=== PATIENT | male | born 1990 | race Caucasian/White ===

== ENCOUNTER 2020-04-24 20:26 | Emergency (ER) | payer BC, OTHER ==
[~2020-04-24] VITALS: Ht 172.7 cm; Wt 68.0 kg
--- OUTSIDE RECORDS SUMMARY | ~2020-04-24 | XMS | Clinical Summary ---
Demographics + + + | Address | [address] | | | [place] [address] | + + + | Home Phone | | + + + | Preferred Language | Unknown | + + + | Marital Status | Single | + + + | Church Affiliation | Unknown | + + + | Race | White | + + + | Ethnic Group | Not or | + + + Author + + + | Author | [facility] | | | and [place] | + + + | Organization | [facility] | | | and [place] | + + + | Address | Unknown | + + + | Phone | Unavailable | + + + Support + + +---------+ + | Name | Relationship | Address | Phone | + + +---------+ + | Tarsha Arana | ECON | Unknown | | + + +---------+ + Care Team Providers + +------+ + | Care Vegetable Vendor Name | Role | Phone | + +------+ + | Malika Silva | PCP | | + +------+ + Allergies Not on File Medications Not on file Active Problems Not on file Immunizations + + + + | Name | Administration Dates | Next Due | + + + + | PNEUMOCOCCAL | 10/16/2014 | | | POLYSACCHARIDE | | | | 23-VALENT (PPSV23) | | | + + + + Family History + + +------+ + | Medical History | Relation | Name | Comments | + + +------+ + | Other (see comment) | Father | | Other (see comments) - unknown | + + +------+ + | COPD | Mother | | | + + +------+ + + +------+--------+ + | Relation | Name | Status | Comments | + +------+--------+ + | Father | | | | + +------+--------+ + | Mother | | | | + +------+--------+ + Social History + +-------+ +--------+------+ | Tobacco Use | Types | Packs/Day | Years | Date | | | | | Used | | + +-------+ +--------+------+ | Current Every Day | | 1 | | | | Smoker | | | | | + +-------+ +--------+------+ + + + | Sex Assigned at | Date Recorded | | | | + + + | Not on file | | + + + Last Filed Vital Signs Not on file Plan of Treatment + + + + + | Health Maintenance | Due Date | Last | Comments | | | | Done | | + + + + + | Vaccine: | 09/20/ | | | | Dtap/Tdap/Td (1 - | 8 | | | | Tdap) | | | | + + + + + | Vaccine: Influenza | | 10/16/19 | | | (#1) | 0 | 15 | | + + + + + Implants + +------+-------+ +--------+--------+--------+ | Implanted | Type | Area | Manufacture | Device | Shelf | Model | | | | | r | | Expira | / | | | | | | Identi | tion | Serial | | | | | | fier | Date | / Lot | + +------+-------+ +--------+--------+--------+ | Plate Kls Mini 2.0 Reg 4h - | | N/A: | TAYLER Fishman | | | 25-550 | | [id number]: Qty: 1 on | | Mouth | L.P. | | | -- | | 10/15/2014 by Lucio Corbett, | | | | | | / / | | DDS | | | | | | | + +------+-------+ +--------+--------+--------+ | Plate Kls 2.0 Rigid Str Reg | | N/A: | KLS Kye | | | 50-320 | | 8h - [id number]: Qty: | | Mouth | L.P. | | | -08-09 | | 1 on 10/15/2014 by Aric, | | | | | | / / | | Lucio Melendez DDS | | | | | | | + +------+-------+ +--------+--------+--------+ | Screw Arturs Emerg 2.3 5mm | | N/A: | TAYLER Fishman | | | 25-873 | | Single - [id number]: | | Mouth | L.P. | | | -45-91 | | Qty: 1 on 10/15/2014 by | | | | | | / / | | Lucio Corbett DDS | | | | | | | + +------+-------+ +--------+--------+--------+ | Screw Kls Maxdrive Drl Free | | N/A: | KLS Kye | | | 25-879 | | 2.0 5mm - [id number]: | | Mouth | L.P. | | | -05-09 | | Qty: 5 on 10/15/2014 by | | | | | | / / | | Lucio Corbett DDS | | | | | | | + +------+-------+ +--------+--------+--------+ | Screw Tayler Maxdrive Mini | | N/A: | TAYLER Fishman | | | 25-872 | | 2.0x7mm - [id number]: | | Mouth | L.P. | | | -- | | Qty: 4 on 10/15/2014 by | | | | | | / / | | Lucio Corbett DDS | | | | | | | + +------+-------+ +--------+--------+--------+ | Plate Tayler 2.[address] [facility] - | | N/A: | TAYLER Fishman | | | 50-321 | | [id number]: Qty: 1 on | | Mouth | L.P. | | | -12-01 | | 10/15/2014 by Lucio Corbett, | | | | | | / / | | MARINO | | | | | | | + +------+-------+ +--------+--------+--------+ | N/AImplanted: Qty: 1 on | | N/A: | TAYLER Fishman | | | 25-873 | | 10/15/2014 by Lucio Corbett, | | Mouth | L.P. | | | -47-09 | | DDS | | | | | | / / | + +------+-------+ +--------+--------+--------+ + +------+-------+ +--------+--------+--------+ | Explanted | Type | Area | Manufacture | Device | Shelf | Model | | | | | r | | Expira | / | | | | | | Identi | tion | Serial | | | | | | fier | Date | / Lot | + +------+-------+ +--------+--------+--------+ | Screw Tayler W[place]en Free | | N/A: | TAYLER Fishman | | | 25-879 | | 2.0 7mm - [id number] | | Mouth | L.P. | | | -07-09 | | | | | | | | / / | + +------+-------+ +--------+--------+--------+ Results Not on filefrom Last 3 Months Insurance + +--------+ +--------+ +---------+------+ | Payer | Benefi | Subscriber | Effect | Phone | Address | Type | | | t Plan | ID | gini | | | | | | / | | Dates | | | | | | Group | | | | | | + +--------+ +--------+ +---------+------+ | [facility] | [id number] | 11/24/19 | [phone] | | PPO | | PLAN | PERSON | | 19-Pre | 5 | | | | | AL | | sent | | | | | | OPEN | | | | | | | | OPTION | | | | | | + +--------+ +--------+ +---------+------+ + +--------+ +--------+ + + | Guarantor Name | Accoun | Relation to | Date | Phone | Billing Address | | | t Type | Patient | of | | | | | | | | | | + +--------+ +--------+ + + | Uvaldo Arana | Person | Self [birth year] | [address] | | | al/Fam | | 1990 | [phone] | [place] [address] | | | sal | | | 5 (Home) | | + +--------+ +--------+ + + | Uvaldo Arana | Person | Self [birth year] | | [address] | | | al/Fam | | 1990 | [address] | [place] [address] | | | sal | | | 5 (Home) | | + +--------+ +--------+ + +"
--- OUTSIDE RECORDS SUMMARY | ~2020-04-24 | XMS | Encounter Summary ---
Demographics + + + | Address | [address] | | | [place] [address] | + + + | Home Phone | [email or web address] | + + + | Preferred Language | Unknown | + + + | Marital Status | Unmarried Domestic Partner | + + + | Sabianism Affiliation | Unknown | + + + | Race | White | + + + | Ethnic Group | Not or | + + + Author + + + | Author | [facility] | + + + | Organization | [facility] | + + + | Address | Unknown | + + + | Phone | Unavailable | + + + Support + + +---------+ + | Name | Relationship | Address | Phone | + + +---------+ + | Kamau Sumit | ECON | Unknown | | + + +---------+ + Care Team Providers + +------+ + | Care Cleaner Name | Role | Phone | + +------+ + | Malika Silva PA-C | PCP | | + +------+ + Reason for Visit + + + | Reason | Comments | + + + | STD - Sexually | wants tamar, possible exposure | | transmitted disease | | + + + Encounter Details +--------+---------+ + + + | Date | Type | Department | Care Team | Description | +--------+---------+ + + + | 07/07/ | Office | [facility] | Cl Russ, | Screen for STD | | 2019 | Visit | [facility] [place] | SERVICES [facility] [address] | (sexually | | | | [address] | [facility] | transmitted disease) | | | | [place], [place] | [place] [address] | (Primary Dx); | | | | [address] | [phone] | Urethritis; Dysuria | | | | | | | +--------+---------+ + + + Social History + +-------+ +--------+------+ | Tobacco Use | Types | Packs/Day | Years | Date | | | | | Used | | + +-------+ +--------+------+ | Current Every Day | | | | | | Smoker | | | | | + +-------+ +--------+------+ + +---+---+---+ | Smokeless Tobacco: | | | | | Current User | | | | + +---+---+---+ + + +---------+ + | Alcohol Use | Drinks/Week | oz/Week | Comments | + + +---------+ + | Yes | | | | + + +---------+ + + + + + | Alcohol Habits | Answer | Date Recorded | + + + + | How often do you have a drink containing | Monthly or less | 07/07/2019 | | alcohol? | | | + + + + | How many drinks containing alcohol do you | Not asked | | | have on a typical day when you are | | | | drinking? | | | + + + + | How often do you have six or more drinks on | Not asked | | | one occasion? | | | + + + + + + + | Sex Assigned at | Date Recorded | | | | + + + | Male | 07/07/2019 2:30 PM PST | + + + documented as of this encounter Last Filed Vital Signs + + + + + | Vital Sign | Reading | Time Taken | Comments | + + + + + | Blood Pressure | 138/68 | 07/07/2019 2:42 PM | | | | | PST | | + + + + + | Pulse | 91 | 07/07/2019 2:42 PM | | | | | PST | | + + + + + | Temperature | 36.9 C (98.4 F) | 07/07/2019 2:42 PM | | | | | PST | | + + + + + | Respiratory Rate | 18 | 07/07/2019 2:42 PM | | | | | PST | | + + + + + | Oxygen Saturation | 97% | 07/07/2019 2:42 PM | | | | | PST | | + + + + + | Inhaled Oxygen | - | - | | | Concentration | | | | + + + + + | Weight | 82.1 kg (181 lb) | 07/07/2019 2:42 PM | | | | | PST | | + + + + + | Height | 171 cm (5' 7.32") | 07/07/2019 2:42 PM | | | | | PST | | + + + + + | Body Mass Index | 28.08 | 07/07/2019 2:42 PM | | | | | PST | | + + + + + documented in this encounter Patient Instructions Patient Instructions Cl Russ NP - 07/07/2019 2:35 PM PST Exposure to Sexually Transmitted Infections: Care Instructions Your Care Instructions Sexually transmitted infections (STIs) are those diseases spread by sexual contact. There a re at least 20 different STIs, including chlamydia, gonorrhea, syphilis, and human immunodef iciency virus (HIV), which causes AIDS. Bacteria-caused STIs can be treated and cured. STIs caused by viruses, such as HIV, can be treated but not cured. Some STIs can reduce a woman's chances of getting in the future. STIs are spread during sexual contact, such as vaginal intercourse and oral or anal sex. Follow-up care is a epperson part of your treatment and safety. Be sure to make and go to all ap pointments, and call your doctor if you are having problems. It's also a good idea to know y our test results and keep a list of the medicines you take. How can you care for yourself at home? Your doctor may have given you a shot of antibiotics. If your doctor prescribed antibiot ic pills, take them as directed. Do not stop taking them just because you feel better. You n eed to take the full course of antibiotics. Do not have sexual contact while you have symptoms of an STI or are being treated for an STI. Tell your sex partner (or partners) that he or she will need treatment. If you are a woman, do not douche. Douching changes the normal balance of bacteria in th e vagina and may spread an infection up into your reproductive organs. To prevent exposure to STIs in the future Use latex condoms every time you have sex. Use them from the beginning to the end of sex ual contact. Talk to your partner before you have sex. Find out if he or she has or is at risk for an y STI. Keep in mind that a person may be able to spread an STI even if he or she does not guzmán ve symptoms. Do not have sex if you are being treated for an STI. Do not have sex with anyone who has symptoms of an STI, such as sores on the genitals or mouth. Having one sex partner (who does not have STIs and does not have sex with anyone else) i s a good way to avoid STIs. When should you call for help? Call your doctor now or seek immediate medical care if: You have new pain in your belly or pelvis. You have symptoms of a urinary tract infection. These may include: ? Pain or burning when you urinate. ? A frequent need to urinate without being able to pass much urine. ? Pain in the flank, which is just below the rib cage and above the waist on either side of the back. ? Blood in your urine. ? A fever. You have new or worsening pain or swelling in the scrotum. Watch closely for changes in your health, and be sure to contact your doctor if: You have unusual vaginal bleeding. You have a discharge from the vagina or penis. You have any new symptoms, such as sores, bumps, rashes, blisters, or warts. You have itching, tingling, pain, or burning in the genital or anal area. You think you may have an STI. Where can you learn more? To learn more about "Exposure to Sexually Transmitted Infections: Care Instructions", log i nto your [email or web address] account at [email or web address]. You can enter [id number] in the "[facility]" search box. Not on [email or web address]? Review the HistoSonicshart section of your After Visit Summary for directions on w to sign up. Current as of: May 05, 2018 Content Version: [id number] [employer]. Care instructions adapted under license by [facility]. If you have questions about a medical condition or this instr uction, always ask your healthcare professional. [employer] disclaims any qian anty or liability for your use of this information. Urethritis: Care Instructions Your Care Instructions Urethritis is an infection of the tube that takes urine from the bladder to the outside of the body. This tube is called the urethra. The infection is often caused by bacteria. This can happen if you have a sexually transmitt ed infection (STI). But a virus may also be a cause. Urethritis is usually treated with antibiotics. Most cases clear up with treatment. Proper treatment is very important. If you don't treat it, the infection can lead to lasting damage of the urethra. Other parts of the urinary system can also be damaged. Follow-up care is a epperson part of your treatment and safety. Be sure to make and go to all ap pointments, and call your doctor if you are having problems. It's also a good idea to know y our test results and keep a list of the medicines you take. How can you care for yourself at home? If your doctor prescribed antibiotics, take them as directed. Do not stop taking them ju st because you feel better. You need to take the full course of antibiotics. Take an ruvv-kan-lvnaedn pain medicine, such as acetaminophen (Tylenol), ibuprofen (Advi l, Motrin), or naproxen (Aleve), if needed. Be safe with medicines. Read and follow all inst ructions on the label. Do not take two or more pain medicines at the same time unless the doctor told you to. M any pain medicines have acetaminophen, which is Tylenol. Too much acetaminophen (Tylenol) ca n be harmful. Your doctor may have you take phenazopyridine (Pyridium). This is a pain medicine for th e urinary tract. It can turn your urine a deep red-orange. This is normal. Call your doctor if you think you are having a problem with your medicine. Do not have sex until you are done with treatment. If you do have sex, be sure to use a condom. Your sex partner or partners should be tested too if your urethritis was caused by a n STI. If your infection was caused by an injury or chemicals, avoid those things if you can. When should you call for help? Call your doctor now or seek immediate medical care if: You can't urinate. You have symptoms of a urinary infection. For example: ? You have blood or pus in your urine. ? You have pain in your back just below your rib cage. This is called flank pain. ? You have a fever, chills, or body aches. ? It hurts to urinate. ? You have groin or belly pain. You have a hard time urinating when your bladder is full. You notice mental changes or feel confused. Watch closely for changes in your health, and be sure to contact your doctor if: You do not get better as expected. Where can you learn more? To learn more about "Urethritis: Care Instructions", log into your [email or web address] account at http: [email or web address]. You can enter [id number] in the "[employer]" search box. Not on [email or web address]? Review the NewCondosOnlinet section of your After Visit Summary for directions on sunil rodriguez to sign up. Current as of: August 12, 2018 Content Version: [id number] [employer]. Care instructions adapted under license by [facility]. If you have questions about a medical condition or this instr uction, always ask your healthcare professional. [employer] disclaims any qian anty or liability for your use of this information. Painful Urination (Dysuria): Care Instructions Your Care Instructions Burning pain with urination (dysuria) is a common symptom of a urinary tract infection or o ther urinary problems. The bladder may become inflamed. This can cause pain when the bladder fills and empties. You may also feel pain if the tube that carries urine from the bladder t o the outside of the body (urethra) gets irritated or infected. Sexually transmitted infections (STIs) also may cause pain when you urinate. Sometimes the pain can be caused by things other than an infection. The urethra can be irri tated by soaps, perfumes, or foreign objects in the urethra. Kidney stones can cause pain wh en they pass through the urethra. The cause may be hard to find. You may need tests. Treatment for painful urination depends on the cause. Follow-up care is a epperson part of your treatment and safety. Be sure to make and go to all ap pointments, and call your doctor if you are having problems. It's also a good idea to know y our test results and keep a list of the medicines you take. How can you care for yourself at home? Drink extra water for the next day or two. This will help make the urine less concentrat ed. (If you have kidney, heart, or liver disease and have to limit fluids, talk with your do ctor before you increase the amount of fluids you drink.) Avoid drinks that are carbonated or have caffeine. They can irritate the bladder. Urinate often. Try to empty your bladder each time. For women: Urinate right after you have sex. After going to the bathroom, wipe from front to back. Avoid douches, bubble baths, and feminine hygiene sprays. And avoid other feminine hygie ne products that have deodorants. When should you call for help? Call your doctor now or seek immediate medical care if: You have new symptoms, such as fever, nausea, or vomiting. You have new or worse symptoms of a urinary problem. For example: ? You have blood or pus in your urine. ? You have chills or body aches. ? It hurts worse to urinate. ? You have groin or belly pain. ? You have pain in your back just below your rib cage (the flank area). Watch closely for changes in your health, and be sure to contact your doctor if you have any problems. Where can you learn more? To learn more about "Painful Urination (Dysuria): Care Instructions", log into your [email or web address] account at [email or web address]. You can enter [id number] in the "[employer]" search b ox. Not on [email or web address]? Review the [email or web address] section of your After Visit Summary for directions on ho w to sign up. Current as of: August 12, 2018 Content Version: [id number] [employer]. Care instructions adapted under license by [facility]. If you have questions about a medical condition or this instr uction, always ask your healthcare professional. [employer] disclaims any qian anty or liability for your use of this information. documented in this encounter Progress Notes Cl Russ NP - 07/07/2019 2:35 PM PSTFormatting of this note might be different f rom the original. CHIEF COMPLAINT: STD - Sexually transmitted disease (wants ck, possible exposure) The history is provided by the pt Patient here for STD check for gonorrhea chlamydia he has slight urethral pain dysuria last week or so. Patient has been monogamous for the last year and a half but 1/2 months ago th ey decided to have another female as another sexual partner which only occurred once and he used a condom but he is concerned he may have an STD from this. Patient's significant other she does not have any symptoms at this time. They are trying to get and he has guzmán d sperm analysis testing all of his counts are slightly low but not too bad and she has had minimal testing they are considering seeing a fertility specialist. Both him and his signif icant other have had drug use in the past and he has had chlamydia like 10 years ago but no other STDs. Patient has no abdominal pain no hematuria no urethral discharge no back pain o r abdominal pain no testicular pain or swelling no other symptoms no rashes. MEDICATIONS: Current outpatient prescriptions Medication Sig OrderDate EndDate ibuprofen 200 mg oral tablet Take 200 mg by mouth every six hours as needed. Allergies: Patient has no known allergies. History reviewed. No pertinent past medical history. Past Surgical History Procedure Laterality Date Jaw surgery Social History Socioeconomic History Marital status: Unmarried Domestic Partner Spouse name: Not on file Number of children: Not on file Years of education: Not on file Highest education level: Not on file Occupational History Not on file Social Needs Financial resource strain: Not on file Food insecurity: Worry: Not on file Inability: Not on file Transportation needs: Medical: Not on file Non-medical: Not on file Tobacco Use Smoking status: Current Every Day Smoker Smokeless tobacco: Current User Substance and Sexual Activity Alcohol use: Yes Frequency: Monthly or less Drug use: Not Currently Sexual activity: Yes Lifestyle Physical activity: Days per week: Not on file Minutes per session: Not on file Stress: Not on file Relationships Social connections: Talks on phone: Not on file Gets together: Not on file Attends taoist service: Not on file Active member of club or organization: Not on file Attends meetings of clubs or organizations: Not on file Relationship status: Not on file Other Topics Concern Not on file Social History Narrative Not on file Family History none Review of Systems Constitutional: Negative. Gastrointestinal: Negative. Genitourinary: Positive for dysuria. Negative for flank pain, frequency and urgency. Musculoskeletal: Negative. Skin: Negative. Neurological: Negative. Endo/Heme/Allergies: Negative. Physical Exam Vitals signs and nursing note reviewed. Constitutional: General: He is not in acute distress. Appearance: Normal appearance. He is not ill-appearing, toxic-appearing or diaphoretic. HENT: Head: Normocephalic and atraumatic. Nose: Nose normal. Mouth/Throat: Mouth: Mucous membranes are moist. Eyes: Conjunctiva/sclera: Conjunctivae normal. Pupils: Pupils are equal, round, and reactive to light. Neck: Musculoskeletal: Normal range of motion. Genitourinary: Comments: Pt declined exam Musculoskeletal: Normal range of motion. General: No swelling, tenderness, deformity or signs of injury. Right lower leg: No edema. Left lower leg: No edema. Skin: General: Skin is warm and dry. Capillary Refill: Capillary refill takes less than 2 seconds. Coloration: Skin is not jaundiced or pale. Findings: No bruising, erythema, lesion or rash. Neurological: General: No focal deficit present. Mental Status: He is alert and oriented to person, place, and time. Psychiatric: Mood and Affect: Mood normal. Behavior: Behavior normal. Thought Content: Thought content normal. Judgment: Judgment normal. BP 138/68 (BP Location: Left upper arm, Patient Position: Sitting) | Pulse 91 | Temp 36.9 C (98.4 F) (Oral) | Resp 18 | Ht 1.71 m (5' 7.32") | Wt 82.1 kg (181 lb) | SpO2 97% | BMI 28.08 kg/m | BSA 1.97 m MEDICAL DECISION MAKING: Discussed with patient dysuria, urethritis, std, chl/juancarlos, chemically induced urethritis, ot her causes INITIATED ORDERS: Orders Placed This Encounter CHLAM/GC APTIMA, RNA, TMA UA 10 DIP, POC LABS: Labs: Office Visit on 07/07/2019 Component Date Value BILIRUBIN (UA DIP), POC 07/07/2019 Negative BLOOD (UA DIP), POC 07/07/2019 Negative APPEARANCE (UA DIP), POC 07/07/2019 Clear COLOR (UA DIP), POC 07/07/2019 Yellow GLUCOSE (UA DIP), POC 07/07/2019 Negative KETONES (UA DIP), POC 07/07/2019 40.0* LEUKOCYTES (UA DIP), POC 07/07/2019 Negative NITRITES (UA DIP), POC 07/07/2019 Negative PH (UA DIP), POC 07/07/2019 6.0 PROTEIN (UA DIP), POC 07/07/2019 Negative SPECIFIC GRAVITY (UA DIP* 07/07/2019 1.025 UROBILINOGEN (UA DIP), P* 07/07/2019 0.2 ASSESSMENT/PLAN: 1. Screen for STD (sexually transmitted disease) 2. Urethritis 3. Dysuria DISCHARGE MEDICATIONS: Outpatient encounter prescriptions ordered on 07/07/19 Medication Sig Dispense Refill ibuprofen 200 mg oral tablet Take 200 mg by mouth every six hours as needed. FOLLOW UP: Return for f/u with pcp, if worsening to ER or pcp. Red flags discussed, agrees with plan. Nontoxic. No UTI on urine dip today we will send ou t for gonorrhea chlamydia testing will call them if its positive if it is positive we will t reat him and recommend his significant other getting tested and treated as well. I offered him prophylactic treatment today he declined. I also recommend he get full STD testing and STD clinic or primary care provider. STD clinic information provided to patient. Also [facility] information provided as well. Lots of education provided today. Home care dis cussed. Cl Russ NP, METAL TILE SETTER-C [facility] AT [address] [address] documented in this encounter Plan of Treatment Not on filedocumented as of this encounter Procedures + +--------+ + + + | Procedure Name | Priori | Date/Time | Associated Diagnosis | Comments | | | ty | | | | + +--------+ + + + | UA DIPSTICK 10 DIP | Routin | 07/07/2019 | Dysuria | Results for this | | W/O MICRO | e | 4:05 PM | | procedure are in the | | (AUTOMATED), POC | | PST | | results section. | + +--------+ + + + | CHLAM/GC APTIMA, | Routin | 07/07/2019 | Screen for STD | Results for this | | RNA, TMA | e | 2:47 PM | (sexually | procedure are in the | | | | PST | transmitted disease) | results section. | + +--------+ + + + documented in this encounter Results UA 10 DIP, POC (07/07/2019 4:05 PM PST) + + + + + + | Component | Value | Ref Range | Performed | Pathologist | | | | | At | Signature | + + + + + + | BILIRUBIN | Negative | Negative | [facility] | | (UA DIP), | | | [facility] | | | POC | | | [facility] | | | [facility] | | + + + + + + | BLOOD (UA | Negative | Negative | [facility] | | | DIP), POC | | | [facility] | | | | | | [facility] | | | | [facility] | | + + + + + + | APPEARANCE | Clear | | [facility] | | (UA DIP), | | | [facility] | | | POC | | | [facility] | | | | | | [facility] | | + + + + + + | COLOR (UA | Yellow | | [facility] | | DIP), POC | | | [facility] | | | | | | [facility] | | | | | | [facility] | | + + + + + + | GLUCOSE (UA | Negative | Negative - | [facility] | | | DIP), POC | | Trace mg/dL | [facility]RG[facility] | | | | | | [facility] | | | | | | [facility] | | + + + + + + | KETONES (UA | 40.0 (A) | Negative mg/dL | [facility] | | | DIP), POC | | | [facility] | | | | | | [facility] | | | | | [facility] | | + + + + + + | LEUKOCYTES | Negative | Negative | [facility] | | | (UA DIP), | | | [facility] | | | POC | | | [facility] | | | | | | [facility] | | + + + + + + | NITRITES | Negative | Negative | [facility] | | | (UA DIP), | | | [facility] | | | POC | | | [facility] | | | | | | [facility] | | + + + + + + | PH (UA | 6.0 | 5.0 - 8.0 | [facility] | | | DIP), POC | | | [facility]RG[facility] | | | | | | [facility] | | | | | | [facility] | | + + + + + + | PROTEIN (UA | Negative | Neg - Trace | [facility] | | | DIP), POC | | mg/dL | [facility]RG[facility] | | | | | | [facility] | | | | | | [facility] | | + + + + + + | SPECIFIC | 1.025 | 1.005 - 1.030 | [facility] | | GRAVITY (UA | | | URGENT [facility]ARE | | | DIP), POC | | | [facility] | | | | | | [facility] | | + + + + + + | UROBILINOGE | 0.2 | 0.2 - 1.0 | [facility] | | | N (UA DIP), | | E.U./dL | URG[facility] | | | POC | | | [facility] | | | | | | [facility] | | + + + + + + + + | Specimen | + + | Urine - Urine | | (substance) | + + + + + + + | Performing | Address | City/State/Zipcode | Phone Number | | Organization | | | | + + + + + | [facility] | [address] | [place], [place] | [phone] | | [facility] [place] | | [address] | | + + + + + CHLAM/GC APTIMA, RNA, [facility] (07/07/2019 2:47 PM PST) + + + + + + | Component | Value | Ref Range | Performed | Pathologist | | | | | At | Signature | + + + + + + | CHLAMYDIA | NegativeComment: | Negative | [facility] | | | PROBE | INTERPRETIVE | | LABORATORIE | | | | INFORMATION: C. | | S | | | | trachomatis by TMA This | | | | | | test is intended for | | | | | | medical purposes only | | | | | | and is not valid for the | | | | | | evaluation of suspected | | | | | | sexual abuse or for | | | | | | other forensic purposes. | | | | | | In certain contexts, | | | | | | culture may be required | | | | | | to meet applicable laws | | | | | | and regulations for | | | | | | diagnosis of C. | | | | | | trachomatis and N. | | | | | | gonorrhoeae infections. | | | | | | Per 2014 CDC | | | | | | recommendations, this | | | | | | test does not include | | | | | | confirmation of positive | | | | | | results by an | | | | | | alternative nucleic acid | | | | | | target. | | | | + + + + + + | GONOCOCCUS | NegativeComment: | Negative | [facility] | | | PROBE | INTERPRETIVE | | LABORATORIE | | | | INFORMATION: N. | | S | | | | gonorrhoeae by TMA This | | | | | | test is intended for | | | | | | medical purposes only | | | | | | and is not valid for the | | | | | | evaluation of suspected | | | | | | sexual abuse or for | | | | | | other forensic purposes. | | | | | | In certain contexts, | | | | | | culture may be required | | | | | | to meet applicable laws | | | | | | and regulations for | | | | | | diagnosis of C. | | | | | | trachomatis and N. | | | | | | gonorrhoeae infections. | | | | | | Per 2014 CDC | | | | | | recommendations, this | | | | | | test does not include | | | | | | confirmation of positive | | | | | | results by an | | | | | | alternative nucleic acid | | | | | | target.Performed by | | | | | | [facility] [employer],[address] | | | | | | [address] [facility] [place] | | | | | | [address] | | | | | | [phone]. | | | | | | Steven rondon MD, | | | | | | Lab. Director | | | | + + + + + + | [facility] | Urine | | [facility] | | | MEDIA | | | LABORATORIE | | | | | | S | | + + + + + + | [facility] | Urine | | [facility] | | | SOURCE | | | LABORATORIE | | | | | | S | | + + + + + + + + | Specimen | + + | Urine - Urine | | (substance) | + + + + + + + | Performing | Address | City/State/Zipcode | Phone Number | | Organization | | | | + + + + + | [facility] | [address] | [place], [place] | [phone] | | | | [address] | | + + + + + documented in this encounter Visit Diagnoses + + | Diagnosis | + + | Screen for STD (sexually transmitted disease) - Primary Screening examination for | | venereal disease | + + | Urethritis Urethritis, unspecified | + + | Dysuria | + + documented in this encounter
--- OUTSIDE RECORDS SUMMARY | ~2020-04-24 | XMS | Clinical Summary ---
Demographics + + + | Address | [address] | | | [place] [address] | + + + | Home Phone | [email or web address] | + + + | Preferred Language | Unknown | + + + | Marital Status | Unmarried Domestic Partner | + + + | Anglican Affiliation | Unknown | + + + | Race | White | + + + | Ethnic Group | Not or | + + + Author + + + | Author | [facility] | + + + | Organization | [facility] | + + + | Address | Unknown | + + + | Phone | Unavailable | + + + Support + + +---------+ + | Name | Relationship | Address | Phone | + + +---------+ + | Beau Sumit | ECON | Unknown | | + + +---------+ + Care Team Providers + +------+ + | Care Lap Winder Name | Role | Phone | + +------+ + | Malika Silva PA-C | PCP | | + +------+ + Source Comments [facility] is fully live on both [facility] and [facility] InPatient.[facility] Allergies No Known Allergies Medications + + + +---------+------+------+-------+ | Medication | Sig | Dispensed | Refills | Star | End | Statu | | | | | | t | Date | s | | | | | | Date | | | + + + +---------+------+------+-------+ | ibuprofen 200 mg | Take 200 mg by mouth | | 0 | | | Activ | | oral tablet | every six hours as | | | | | e | | | needed. | | | | | | + + + +---------+------+------+-------+ Active Problems No known active problems Family History + +------+ + + | Relation | Name | Status | Comments | + +------+ + + | Father | | | | + +------+ + + | Mother | | | | + +------+ + + Social History + +-------+ +--------+------+ [...] 2:30 PM PST | + + + Last Filed Vital Signs + + + [...] | | + + + + + Plan of Treatment + + + + + | Health Maintenance | Due Date | Last | Comments | | | | Done | | + + + + + | Influenza (Flu) | | 08/01/20 | | | vaccination (#1) | 9 | 15, | | | | | 10/16/19 | | | | | 15, | | | | | 08/14/20 | | | | | 11 | | + + + + + | Pneumococcal | Completed | 10/16/19 | | | vaccination | | 15 | | + + + + + Results Not on filefrom Last 3 Months Insurance + +--------+ +--------+ + +------+ | Payer | Benefi | Subscriber | Effect | Phone | Address | Type | | | t Plan | ID | gini | | | | | | / | | Dates | | | | | | Group | | | | | | + +--------+ +--------+ + +------+ | [employer] | [facility] | [id number] | Effect | [phone] | [address] | PPO | | SHIELD | E [employer] | 7 | gini | 8 | [phone] | | | | | | for | | [place], | | | | | | all | | ID | | | | | | dates | | [phone] | | + +--------+ +--------+ + +------+ + +--------+ +--------+-------+ + | Guarantor Name | Accoun | Relation to | Date | Phone | Billing Address | | | t Type | Patient | of | | | | | | | | | | + +--------+ +--------+-------+ + | Uvaldo Arana | Person | Self | [birth year] | | [address] | | [place] | sarah/Denis | | 1990 | | [place] [address] | | | sal | | | | | + +--------+ +--------+-------+ +
--- OUTSIDE RECORDS SUMMARY | ~2020-04-24 | XMS | Encounter Summary ---
Demographics + + + | Address | [address] | | | [place] [address] | + + + | Home Phone | [email or web address] | + + + | Preferred Language | Unknown | + + + | Marital Status | Unmarried Domestic Partner | + + + | Hinduism Affiliation | Unknown | + + + | Race | White | + + + | Ethnic Group | Not or | + + + Author + + + | Organization | Unknown | + + + | Address | Unknown | + + + | Phone | Unavailable | + + + Support + + +---------+ + | Name | Relationship | Address | Phone | + + +---------+ + | Matt Arana | ECON | Unknown | | + + +---------+ + Care Team Providers + +------+ + | Care Special Education Teacher Name | Role | Phone | + +------+ + | Malika Silva PA-C | PCP | | + +------+ + Encounter Details +--------+--------+ + + + | Date | Type | Department | Care Team | Description | +--------+--------+ + + + | 07/07/ | Travel | | | | | 2019 | | | | | +--------+--------+ + + + Social History + +-------+ [...] + + documented as of this encounter Plan of Treatment Not on filedocumented as of this encounter Visit Diagnoses Not on filedocumented in this encounter"
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
--- OUTSIDE RECORDS SUMMARY | 2020-04-24 20:30 | XMS ---
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 Olivia has no Care Guidelines for this patient. Richie VISIT COUNT (12 MO.) [address] [facility] NOTE: Visits indicate total known visits. ED/C VISIT TRACKING (12 MO.) [facility] COMPLAINT: - URINE PROBLEM/BACK PAIN 04/18/2020 22:18 [facility] [place] TYPE: Emergency DIAGNOSES: - Back Pain - Sepsis, unspecified organism - Opioid abuse, uncomplicated - Severe sepsis without septic shock - Other psychoactive substance abuse, uncomplicated - Low back pain - Homelessness 08/08/2019 15:11 [facility] [place] TYPE: Emergency DIAGNOSES: - Poisoning by unspecified narcotics, accidental (unintentional - unresponsive INPATIENT VISIT TRACKING (12 MO.) 04/18/2020 22:18 [facility] [place] TYPE: Medical Surgical DIAGNOSES: - Encephalopathy, unspecified - Low back pain - Homelessness - Severe sepsis without septic shock - Sepsis, unspecified organism - Other psychoactive substance abuse, uncomplicated [email or web address]
[2020-04-24] MEDS ORDERED: BACTRIM DS TAB1 EACH PO (20:49)
== END 2020-04-24 23:08 | disposition home or self-care (01) ==
LOC: ED 20:26
DX: M54.5 Low back pain (principal); F11.90 Opioid use, unspecified, uncomplicated; F12.90 Cannabis use, unspecified, uncomplicated; F17.200 Nicotine dependence, unspecified, uncomplicated
CPT/HCPCS: 80053; 81001; 85025; 99283

== ENCOUNTER 2022-01-14 14:05 | Emergency (ER) | payer OTHER ==
[~2022-01-14] VITALS: Ht 172.7 cm; Wt 68.0 kg
[~2022-01-14 14:05] MED LIST: BACTRIM DS TAB1 EACH PO
== END 2022-01-14 15:59 | disposition home or self-care (01) ==
LOC: ED 14:05
DX: T78.49XA Other allergy, initial encounter (principal); F17.200 Nicotine dependence, unspecified, uncomplicated
CPT/HCPCS: 94640; 96374; 96375; 99284-25; J1200; J2930; J7040